=== PATIENT | female | born 1995 | race Caucasian/White ===

== ENCOUNTER 2016-12-28 13:04 | Emergency (ER) | payer OTHER ==
[~2016-12-28] VITALS: Ht 177.8 cm; Wt 81.8 kg
[~2016-12-28 13:04] MED LIST: PERCOCET 325 MG1 TA2 PO; ULTRAM 50MG TAB50 MG PO
[2016-12-28 13:59] LABS: BASO % 0.1 % (0.0-2.0); GRAN # 6.8 (1.4-6.5); GRAN % 81.8 % (42.2-75.2); HEMATOCRIT 37.5 % (37.0-47.0); HEMOGLOBIN 12.4 g/dl (12.5-16.0); LYMPH # 0.8 (1.2-3.4); LYMPH % 10.2 % (20.0-51.0); MEAN CELL VOLUME 89 fl (80.0-100.0); MEAN CORPUSCULAR HEMOGLOBIN 29 pg (27.0-31.0); MEAN CORPUSCULAR HGB CONC 33 g/dl (33.0-37.0); MEAN PLATELET VOLUME 9.6 fl (7.4-10.4); MONO # 0.6 (0.1-0.6); MONO % 7.5 % (1.7-9.3); PLATELET COUNT 217 K/mm3 (130-400); RED BLOOD COUNT 4.22 M/mm3 (4.10-5.30); REDCELL DISTRIBUTION WIDTH-CV 14.4 % (11.5-14.5); WHITE BLOOD COUNT 8.3 K/mm3 (4.8-10.8)
[2016-12-28 14:04] LABS: CREATININE, serum 0.77 mg/dL (0.52-1.25); POTASSIUM 3.9 mmol/L (3.4-5.0)
[2016-12-28 14:17] LABS: INFLUENZA B NEGATIVE
[2016-12-28 16:27] LABS: PH 6 (5-8); SQUAMOUS EPITHELIAL 0-2 /hpf; URINE APPEARANCE Clear; URINE BACTERIA None Seen /hpf; URINE BILIRUBIN Negative (NEGATIVE); URINE BLOOD Negative (NEGATIVE); URINE COLOR Yellow; URINE GLUCOSE Negative (NEGATIVE); URINE KETONE Negative (NEGATIVE); URINE RBC 0-2 /hpf
[2016-12-28 16:33] VITALS: TEMP 97
[2016-12-28] MEDS ORDERED: ZOFRAN8 MG PO (16:43)
[2016-12-28] MEDS ORDERED: ULTRAM 50MG TAB50 MG PO (16:43)
[2016-12-28 16:46] VITALS: BP 108/66; PULSE 85
[2016-12-28] MEDS ORDERED: EMGEL 2% TOP (16:46)
== END 2016-12-28 17:15 | disposition home or self-care (01) ==
LOC: COL.ER 13:04
PROVIDERS: Emergency Medicine
DX: J06.9 Acute upper respiratory infection, unspecified (principal); F17.210 Nicotine dependence, cigarettes, uncomplicated; H10.9 Unspecified conjunctivitis; M54.5 Low back pain
CPT/HCPCS: J1885; J2405; J7030

== ENCOUNTER 2017-02-11 10:25 | Emergency (ER) | payer OTHER ==
[~2017-02-11] VITALS: Ht 177.8 cm; Wt 81.8 kg
[~2017-02-11 10:25] MED LIST changes: +EMGEL 2% TOP; +ZOFRAN8 MG PO
[2017-02-11 10:27] VITALS: BP 124/73; TEMP 97.5
[2017-02-11] MEDS ORDERED: ZOFRAN 4MG T4 MG/TAB PO (13:21)
[2017-02-11] MEDS ORDERED: NORCO 325 MG-51 TAB PO (13:21)
[2017-02-11 13:45] VITALS: PULSE 69
== END 2017-02-11 13:48 | disposition home or self-care (01) ==
LOC: COL.ER 10:25
DX: S06.0X0A Concussion without loss of consciousness, initial encounter (principal); S00.93XA Contusion of unspecified part of head, initial encounter; R51 Headache; F17.210 Nicotine dependence, cigarettes, uncomplicated; W19.XXXA Unspecified fall, initial encounter; Y92.009 Unspecified place in unspecified non-institutional (private) residence as the place of occurrence of the external cause
CPT/HCPCS: J1885

== ENCOUNTER 2017-02-15 18:05 | Emergency (ER) | payer OTHER ==
[~2017-02-15] VITALS: Ht 177.8 cm; Wt 84.1 kg
[~2017-02-15 18:05] MED LIST changes: +NORCO 325 MG-51 TAB PO; +ZOFRAN 4MG T4 MG/TAB PO
[2017-02-15 18:09] VITALS: TEMP 98.2
[2017-02-15 20:13] VITALS: BP 132/77; PULSE 87
== END 2017-02-15 20:29 | disposition home or self-care (01) ==
LOC: COL.ER 18:05
DX: F07.81 Postconcussional syndrome (principal); G44.309 Post-traumatic headache, unspecified, not intractable; R00.0 Tachycardia, unspecified; F17.210 Nicotine dependence, cigarettes, uncomplicated
CPT/HCPCS: J1885; J2405; J7030